=== PATIENT | female | born 1985 | race Caucasian/White ===

== ENCOUNTER 2017-02-20 17:23 | Emergency (ER) | payer SELFPAY ==
[~2017-02-20] VITALS: Ht 162.6 cm; Wt 62.0 kg
[2017-02-20 17:33] VITALS: BP 151/86; PULSE 88; RESP 16; TEMP 98.3; O2SAT 99
[2017-02-20 18:36] VITALS: BP_SYST 128; BP_SYST 131; BP_SYST 135; BP_DIAS 80; BP_DIAS 86; BP_DIAS 87; RESP 16; RESP 18
[2017-02-20 18:40] LABS: BLOOD, URINE TRACE (NEG); GLUCOSE,URINE NEG (NEG); KETONE, URINE NEG (NEG); NITRITE,URINE NEG (NEG); PH, URINE 6.5 (5.0-8.5)
[2017-02-20 18:49] LABS: URINE COLOR YELLOW (YELLW/STRAW)
[2017-02-20 18:50] LABS: BACTERIA, URINE OCC /hpf; COMMENT (UR) CULT NOT INDICATED; CULTURE IF INDICATED CULT NOT INDICATED; SQUAMOUS EPITHELIAL CELL URINE > 8 /hpf (0-5)
--- NOTE | 2017-02-20 18:52 | PD ---
HPI Chief Complaint: Headache Time Seen by Provider: 18:18 Travel History International Travel<30 days: No Contact w/Intl Traveler<30days: No Traveled to known affect area: No History of Present Illness HPI Isabela is a 31 year old female who presents with a 3 day history of dizziness and weakness when standing and intermittent headaches. She also has had a 1 day history of right flank pain. Headaches are throbbing and rated 6/10 when present. She did have runny nose and congestion 4 days ago prior to onset of symptoms. Symptoms relieved with Ibuprofen, Sudafed, and Benadryl. She describes her dizziness as "like stepping of a boat" feeling unsteady and weak. Symptoms only occur when walking and relieved with sitting.Flank pain presented today upon wakening. She has had a dull aching pain with intermittent sharp pain rated 4/10. The pain does not radiate. She denies history of headaches or migraines, syncopal episodes, fever, chills, nausea, vomiting, diarrhea, ear pain, neck pain, dark stools, dysuria, or hematuria. Modifying Factors: None Associated Signs & Symptoms: Headaches, dizziness, nasal congestion, flank pain Risk Factors: None PFSH Past Medical History Medical other: Yes (gallstones) ?: Not LMP: ONE WEEK Past Surgical History Surgical History: No Previous Surgery Social History Alcohol Use: Yes (soc) Tobacco Use: Yes (1 ppd) Substance Use: No Allergies-Medications (Allergen,Severity, Reaction): Coded Allergies: diphtheria, pertussis, tetanus vacc (Verified Allergy, Unknown, 02/20/17) Reported Meds & Prescriptions Reported Meds & Active Scripts Active No Active Prescriptions or Reported Medications Review of Systems Except as stated in HPI: all other systems reviewed are Neg Physical Exam Narrative GENERAL: Well-developed young white female, well-nourished, awake, alert, in no acute distress. SKIN: Warm and dry. HEAD: Normocephalic. Atraumatic. EYES: No scleral icterus. No injection or drainage. PERRLA. Extraocular movements intact. NECK: Supple, trachea midline. No JVD or lymphadenopathy. Full ROM CARDIOVASCULAR: Regular rate and rhythm without murmurs, gallops, or rubs. RESPIRATORY: Breath sounds equal bilaterally. No accessory muscle use. GASTROINTESTINAL: Abdomen soft, non-tender, nondistended. Benign. MUSCULOSKELETAL: No cyanosis, or edema. BACK: Nontender without obvious deformity. No CVA tenderness. NEUROLOGICAL: Awake and alert. Cranial nerves II through XII intact. Motor and sensory grossly within normal limits. Five out of 5 muscle strength in all muscle groups. Normal speech. Data Data Last Documented VS Vital Signs Date Time Temp Pulse Resp B/P (MAP) Pulse Ox O2 Delivery O2 Flow Rate FiO2 02/20/17 18:36 71 16 131/86 (101) 78 16 128/80 (96) 78 18 135/87 (103) 02/20/17 17:33 98.3 99 Orders Orders Urinalysis - C+S If Indicated (02/20/17 18:18) Ed Urine Pregnancytest Poc (02/20/17 18:18) Labs Laboratory Tests Test 02/20/17 18:24 Urine Color YELLOW Urine Turbidity CLOUDY Urine pH 6.5 Urine Specific [place] 1.023 Urine Protein NEG mg/dL Urine Glucose (UA) NEG mg/dL Urine Ketones NEG mg/dL Urine Occult Blood TRACE Urine Nitrite NEG Urine Bilirubin NEG Urine Leukocyte Esterase NEG Urine RBC 3-5 /hpf Urine WBC 3-5 /hpf Urine Squamous Epithelial Cells > 8 /hpf Urine Amorphous Sediment FEW Urine Bacteria OCC /hpf Microscopic Urinalysis Comment CULT NOT INDICATED MDM Medical Decision Making Medical Screen Exam Complete: Yes Emergency Medical Condition: Yes Medical Record Reviewed: Yes Differential Diagnosis Viral syndrome versus UTI versus muscular skeletal Narrative Course UA did not show any signs of UTI. She has not . Symptoms are more indicative of a viral syndrome at this point. My plan would be to release her with symptomatic relief for headaches and pains. Return for any worsening in symptoms as needed. The plan has discussed with her and she states understanding. Diagnosis Primary Impression: Headache Additional Impression: Viral syndrome Med/Other Pt SpecificInfo: Prescription(s) given Scripts Ibuprofen (Motrin Ib) 200 Mg Tablet 600 MG PO QID Y for PAIN SCALE 1 TO 10, #21 Prov: Silviano Egan MD 02/20/17 Disposition: 01 DISCHARGE HOME Condition: Stable Silviano Egan MD Feb 20, 2017 18:52
[2017-02-20] MEDS ORDERED: IBUP-1129 PO (19:21)
== END 2017-02-20 19:40 | disposition home or self-care (01) ==
LOC: PHED 17:23
DX: R51 Headache (principal); B34.9 Viral infection, unspecified; F17.210 Nicotine dependence, cigarettes, uncomplicated
CPT/HCPCS: 81001; 84703; 99283